=== PATIENT | male | born 1965 | race Two or more races ===

== ENCOUNTER 2016-03-29 17:01 | Inpatient (IN) | payer OTHER ==
[2016-03-29 19:36] VITALS: BMI 30.6
--- NOTE | 2016-03-29 21:25 | HP ---
CIWA Score - CIWA Score Nausea/Vomitin Muscle Tremors: 3 Anxiety: 3 Agitation: 3 Paroxysmal Sweats: 2 Orientation: 1-Uncertain about Date Tacttile Disturbances: 2-Mild Itch/Numbness/Burn (TIPS OF FINGERS) Auditory Disturbances: 2-Mild Harshness/Frighten Visual Disturbances: 0-None Headache: 0-None Present CIWA-Ar Total Score: 18 Admission ROS BHS - HPI Chief Complaint: WITHDRAWAL SYMPTOMS Allergies/Adverse Reactions: Allergies Allergy/AdvReac Type Severity Reaction Status Date / Time Fish Containing Products Allergy Verified 03/29/16 21:19 Penicillins AdvReac Verified 03/29/16 21:19 History of Present Illness: 50 Y.O. MAN WITH AN EXTENSIVE HISTORY OF ALCOHOL DEPENDENCE IS SEEKING DETOX. HE STATES HE DOES NOT HAVE A SIGNIFICANT PERIOD OF SOBRIETY. HE REPORTS COMPLETING DETOX PREVIOUSLY AT [facility] 1-2 YEARS AGO. Exam Limitations: No Limitations - Ebola screening Have you traveled outside of the country in the last 21 days: No Have you had contact with anyone from an Ebola affected area: No Have you been sick,other than usual withdrawal symptoms: No Do you have a fever: No - Review of Systems Constitutional: Chills, Loss of Appetite, Night Sweats, Changes in sleep, Unintentional Wgt. Loss EENT: reports: Tearing Respiratory: reports: No Symptoms reported Cardiac: reports: No Symptoms Reported GI: reports: Constipated, Poor Appetite : reports: Frequency Musculoskeletal: reports: No Symptoms Reported Integumentary: reports: Dryness Neuro: reports: Numbness, Tremors Endocrine: reports: No Symptoms Reported Hematology: reports: No Symptoms Reported Psychiatric: reports: Judgement Intact, Mood/Affect Appropiate, Orientated x3 Other Systems: Reviewed and Negative Patient History - Patient Medical History Hx Anemia: No Hx Asthma: No Hx Chronic Obstructive Pulmonary Disease (COPD): No Hx Cancer: No Hx Cardiac Disorders: Yes ([place] IN 2011-2 STENTS PLACED) Hx Congestive Heart Failure: No Hx Hypertension: Yes Hx Hypercholesterolemia: Yes Hx Pacemaker: No HX Cerebrovascular Accident: No Hx Seizures: No Hx Dementia: No Hx Diabetes: No Hx Gastrointestinal Disorders: No Hx Liver Disease: No Hx Sexually Transmitted Disorders: Yes (SYPHILIS-TREATED IN 1983) Hx Renal Disease (ESRD): No Hx Thyroid Disease: No Hx Human Immunodeficiency Virus (HIV): No Hx Hepatitis C: No Hx Depression: No Hx Suicide Attempt: No Hx Bipolar Disorder: No Hx Schizophrenia: No - Patient Surgical History Past Surgical History: Yes Hx Cataract Extraction: No Hx Cardiac Surgery: Yes (STENT PLACEMENT-2010) Hx Lung Surgery: No Hx Breast Surgery: No Hx Breast Biopsy: No Hx Abdominal Surgery: No Hx Appendectomy: No Hx Cholecystectomy: No Hx Genitourinary Surgery: No Hx Orthopedic Surgery: No Other Surgical History: TOOTH EXTRACTION-1996 Anesthesia Reaction: No - PPD History Previous Implant?: Yes ([facility] ) Documented Results: Negative w/proof Implanted On Prior [facility] Admission?: No Date: 11/02/15 Results: 0 PPD to be Administered?: No - Reproductive History Patient is a Female of Child Bearing Age (11 -55 yrs old): No - Smoking Cessation Smoking history: Current every day smoker Have you smoked in the past 12 months: Yes Aproximately how many cigarettes per day: 20 Hx Chewing Tobacco Use: No Initiated information on smoking cessation: Yes 'Breaking Loose' booklet given: 03/29/16 - Substance & Tx. History Hx Alcohol Use: Yes Hx Substance Use: Yes Substance Use Type: Alcohol, Cocaine Hx Substance Use Treatment: Yes (DETOX ) - Substances Abused Alcohol Route: Oral Frequency: Daily Amount used: 2 40OZ OF BEER Age of first use: 8 Date of Last Use: 03/28/16 Cocaine Route: Inhalation Frequency: 1-2 times per week Amount used: $20 Age of first use: 10 Date of Last Use: 03/26/16 Family Disease History - Family Disease History Family Disease History: Diabetes: Mother, Heart Disease: Mother, CA: Father ( Cirrhosis of the liver), Respiratory: Mother, Other: Father Admission Physical Exam S - Vital Signs Vital Signs: Vital Signs - 24 hr 03/29/16 19:35 Temperature 97.9 F Pulse Rate 91 H Respiratory 20 Rate Blood Pressure 128/71 - Physical General Appearance: Yes: Disheveled, Tremorous, Anxious HEENTM: Yes: Hearing grossly Normal, Normal ENT Inspection, Normocephalic, Normal Voice, JILL Respiratory: Yes: Chest Non-Tender, Lungs Clear, Normal Breath Sounds, No Respiratory Distress, No Accessory Muscle Use Neck: Yes: No masses,lesions,Nodules Breast: Yes: Breast Exam Deferred Cardiology: Yes: Regular Rhythm, Regular Rate, S1, S2 Abdominal: Yes: Non Tender, Flat, Soft Genitourinary: Yes: Frequency Back: Yes: Within Normal Limits Musculoskeletal: Yes: Within Normal Limits Extremities: Yes: Tremors Neurological: Yes: Alert, Normal Mood/Affect, Normal Response Integumentary: Yes: Normal Color, Dry, Warm Lymphatic: Yes: Within Normal Limits - Diagnostic (1) Alcohol dependence with uncomplicated withdrawal Current Visit: Yes Status: Chronic (2) Eczema Current Visit: Yes Status: Chronic (3) Hypertension Current Visit: Yes Status: Chronic (4) Stented coronary artery Current Visit: Yes Status: Chronic (5) History of [place] (myocardial infarction) Current Visit: Yes Status: Inactive (6) History of syphilis Current Visit: Yes Status: Inactive Cleared for Admission [facility] - Detox or Rehab [facility] Level of Care: Medically Managed Detox Regimen/Protocol: Librium S Breath Alcohol Content Breath Alcohol Content: 0 Urine Drug Screen - Results Drug Screen Negative: No Urine Drug Screen Results: KEATON-Cocaine
[2016-03-29] MEDS ORDERED: MAGNESIUM HYDROX 2400MG/30ML ORAL SUSPENSION 30 ML CUP PO PRN (21:46)
[2016-03-29] MEDS ORDERED: ACETAMINOPHEN 325 MG TABLET (FP) PO PRN (21:46)
[2016-03-29] MEDS ORDERED: MAG HYDROX/AL HYDROX/SIMETH 30 ML UNIT-DOSE CUP PO PRN (21:46)
[2016-03-29] MEDS ORDERED: diphenhydrAMINE HCL 50 MG CAPSULE PO PRN (21:46)
[2016-03-29] MEDS ORDERED: guaiFENesin/D-METHORPHAN HB 10 ML UNIT-DOSE CUPS PO PRN (21:46)
[2016-03-29] MEDS ORDERED: chlordiazePOXIDE HCL 25 MG CAPSULE PO ONE (21:46)
[2016-03-29] MEDS ORDERED: chlordiazePOXIDE HCL 25 MG CAPSULE PO PRN (21:46)
[2016-03-29] MEDS ORDERED: MAGNESIUM CITRATE 300 ML BOTTLE PO PRN (21:46)
[2016-03-29] MEDS ORDERED: NICOTINE POLACRILEX 2 MG GUM BC PRN (21:46)
[2016-03-29] MEDS ORDERED: LOPERAMIDE HCL 2 MG CAPSULE PO PRN (21:46)
[2016-03-29] MEDS ORDERED: MENTHOL/PHENOL 1 EACH UD MM PRN (21:46)
[2016-03-29] MEDS ORDERED: hydrOXYzine PAMOATE 50 MG CAPSULE (FP) PO PRN (21:46)
[2016-03-29] MEDS ORDERED: P-EPHED 60MG/TRIPROLIDI 2.5MG TABLET PO PRN (21:46)
[2016-03-29] MEDS ORDERED: IBUPROFEN 400 MG TABLET (FP) PO PRN (21:46)
[2016-03-29] MEDS ORDERED: HYDROCORTISONE 1% TOPICAL OINT 30 GM TUBE TP PRN (21:50)
[2016-03-29] MEDS ORDERED: chlordiazePOXIDE HCL 25 MG CAPSULE PO SCH (23:00)
[2016-03-30] MEDS ORDERED: chlordiazePOXIDE HCL 25 MG CAPSULE PO PRN (01:27)
[2016-03-30] MEDS ORDERED: chlordiazePOXIDE HCL 25 MG CAPSULE PO ONE (01:27)
[2016-03-30 02:39] LABS: URINE APPEARANCE CLEAR; URINE BILIRUBIN NEGATIVE (NEGATIVE); URINE BLOOD NEGATIVE (NEGATIVE); URINE COLOR LTYELLOW; URINE GLUCOSE (UA) NEGATIVE (NEGATIVE); URINE KETONE NEGATIVE (NEGATIVE); URINE NITRITE NEGATIVE (NEGATIVE); URINE PROTEIN NEGATIVE (NEGATIVE); URINE UROBILINOGEN NEGATIVE E.U./dl (0.2-1.0)
[2016-03-30 02:47] LABS: URINE LEUK ESTERASE TRACE (NEGATIVE)
[2016-03-30 02:49] LABS: CALCIUM OXALATE CRYSTALS FEW /hpf (NONE SEEN); URINE HYALINE CAST 1 /lpf; URINE MUCUS RARE; URINE RBC 1 /hpf (0-3); URINE WBC 6 /hpf (3-5)
[2016-03-30] MEDS: THIAMINE HCL 100 MG TABLET (FP) PO SCH ×2 (03:11→21:23)
[2016-03-30] MEDS: TOLNAFTATE 1% CREAM 15 GM TUBE TP SCH ×3 (03:11→21:25)
[2016-03-30] MEDS: chlordiazePOXIDE HCL 25 MG CAPSULE PO SCH ×4 (05:48→22:15)
--- NOTE | 2016-03-30 09:47 | PN ---
S CIWA - CIWA Score Nausea/Vomitin-No Nausea/No Vomiting Muscle Tremors: 4-Moderate,w/Arms Extend Anxiety: 4-Mod. Anxious/Guarded Agitation: 4-Moderately Restless Paroxysmal Sweats: 1-Minimal Palms Moist Orientation: 0-Oriented Tacttile Disturbances: 3-Moderate Itch/Numb/Burn Auditory Disturbances: 0-None Visual Disturbances: 0-None Headache: 0-None Present CIWA-Ar Total Score: 16 BHS Progress Note (SOAP) Subjective: ANXIETY,SWEATS,IRRITABILITY. Objective: 03/30/16 09:50 Vital Signs Temperature 98.7 F 03/30/16 06:25 Pulse Rate 76 03/30/16 06:25 Respiratory Rate 16 03/30/16 06:25 Blood Pressure 114/71 03/30/16 06:25 O2 Sat by Pulse Oximetry (%) Laboratory Last Values Urine Color Ltyellow 03/30/16 00:05 Urine Appearance Clear 03/30/16 00:05 Urine pH 5.0 (5.0-8.0) 03/30/16 00:05 Ur Specific [place] 1.025 (1.001-1.035) 03/30/16 00:05 Urine Protein Negative (NEGATIVE) 03/30/16 00:05 Urine Glucose (UA) Negative (NEGATIVE) 03/30/16 00:05 Urine Ketones Negative (NEGATIVE) 03/30/16 00:05 Urine Blood Negative (NEGATIVE) 03/30/16 00:05 Urine Nitrite Negative (NEGATIVE) 03/30/16 00:05 Urine Bilirubin Negative (NEGATIVE) 03/30/16 00:05 Urine Urobilinogen Negative E.U./dl (0.2-1.0) 03/30/16 00:05 Ur Leukocyte Esterase Trace (NEGATIVE) H 03/30/16 00:05 Urine RBC 1 /hpf (0-3) 03/30/16 00:05 Urine WBC 6 /hpf (3-5) 03/30/16 00:05 Calcium Oxalate Crystal Few /hpf (NONE SEEN) 03/30/16 00:05 Hyaline Casts 1 /lpf 03/30/16 00:05 Urine Mucus Rare 03/30/16 00:05 Assessment: 03/30/16 09:50 WITHDRAWAL SX Plan: CONTINUE DETOX
[2016-03-30] MEDS: NICOTINE 21 MG/24 HOURS TOPICAL PATCH TD SCH (10:12)
[2016-03-30] MEDS: LISINOPRIL 5 MG TABLET (FP) PO SCH (10:12)
[2016-03-30] MEDS: PRENATAL VITAMINS W/ FOLIC ACID TABLET (FP) PO SCH (10:12)
[2016-03-30] MEDS: ASPIRIN 81 MG CHEWABLE TABLETS PO SCH (10:12)
[2016-03-30 10:27] LABS: MCH 30.5 pg (25.7-33.7); MCHC 33.2 g/dl (32.0-35.9); MEAN CELL VOLUME 91.8 fl (80-96); MEAN PLT VOLUME 8.8 fl (7.5-11.1); PLATELET COUNT 192 K/MM3 (134-434); RDW 13.8 % (11.9-15.9); WHITE BLOOD COUNT 9.2 K/mm3 (4.0-10.0)
[2016-03-30] MEDS: METOPROLOL SUCCINATE 50 MG TAB.SR.24H (FP) PO SCH (10:37)
[2016-03-30] MEDS: EZETIMIBE 10 MG TABLET (FP) PO SCH (10:38)
[2016-03-30 11:05] LABS: ALK PHOS 75 U/L (45-117); ANION GAP 1 (8-16); BILIRUBIN,TOTAL 0.2 mg/dL (0.2-1.0); CALCIUM 8.8 mg/dL (8.5-10.1); CO2 31 mmol/L (21-32); CREATININE 1.2 mg/dL (0.7-1.3); GLUCOSE,RANDOM 87 mg/dL (74-106); SGOT/AST 15 U/L (15-37); SGPT/ALT 31 U/L (12-78); TOT PROT 5.7 g/dl (6.4-8.2)
--- NOTE | 2016-03-30 11:50 | EKG ---
Test Reason : Blood Pressure : / mmHG Vent. Rate : 075 BPM Atrial Rate : 075 BPM P-R Int : 150 ms QRS Dur : 090 ms QT Int : 404 ms P-R-T Axes : 080 -08 -14 degrees QTc Int : 451 ms NORMAL SINUS RHYTHM INFERIOR-POSTERIOR INFARCT , AGE UNDETERMINED ABNORMAL ECG NO PREVIOUS ECGS AVAILABLE Confirmed by ZOHAIB MANN MD ([id number]) on 03/30/2016 11:50:07 AM Referred By: Confirmed By:ZOHAIB MANN MD
[2016-03-30] MEDS: PRASUGREL HCL 5 MG TAB PO SCH ×2 (15:40→21:24)
[2016-03-30] MEDS: ATORVASTATIN CA 40 MG TABLET (FP) PO SCH (21:23)
[2016-03-30] MEDS ORDERED: chlordiazePOXIDE HCL 25 MG CAPSULE PO SCH (23:00)
[2016-03-31] MEDS: chlordiazePOXIDE HCL 25 MG CAPSULE PO SCH ×4 (05:55→22:39)
[2016-03-31] MEDS: METOPROLOL SUCCINATE 50 MG TAB.SR.24H (FP) PO SCH (10:09)
[2016-03-31] MEDS: PRASUGREL HCL 5 MG TAB PO SCH ×2 (10:09→22:38)
[2016-03-31] MEDS: TOLNAFTATE 1% CREAM 15 GM TUBE TP SCH ×2 (10:09→22:37)
[2016-03-31] MEDS: PRENATAL VITAMINS W/ FOLIC ACID TABLET (FP) PO SCH (10:09)
[2016-03-31] MEDS: HYDROCORTISONE 1% TOPICAL OINT 30 GM TUBE TP SCH ×2 (10:09→22:38)
[2016-03-31] MEDS: ASPIRIN 81 MG CHEWABLE TABLETS PO SCH (10:10)
[2016-03-31] MEDS: LISINOPRIL 5 MG TABLET (FP) PO SCH (10:10)
--- NOTE | 2016-03-31 10:11 | PN ---
[facility] CIWA - CIWA Score Nausea/Vomitin-No Nausea/No Vomiting Muscle Tremors: 4-Moderate,w/Arms Extend Anxiety: 4-Mod. Anxious/Guarded Agitation: 4-Moderately Restless Paroxysmal Sweats: 1-Minimal Palms Moist Orientation: 0-Oriented Tacttile Disturbances: 3-Moderate Itch/Numb/Burn Auditory Disturbances: 0-None Visual Disturbances: 0-None Headache: 0-None Present CIWA-Ar Total Score: 16 S Progress Note (SOAP) Subjective: ANXIETY,SWEATS, IRRITABILITY,AGITATIONS. Objective: 03/31/16 10:10 Vital Signs Temperature 98.5 F 03/31/16 06:21 Pulse Rate 72 03/31/16 06:21 Respiratory Rate 16 03/31/16 06:21 Blood Pressure 104/66 03/31/16 06:21 O2 Sat by Pulse Oximetry (%) Laboratory Last Values WBC 9.2 K/mm3 (4.0-10.0) 03/30/16 07:00 RBC 4.54 M/mm3 (4.00-5.60) 03/30/16 07:00 Hgb 13.8 GM/dL (11.7-16.9) 03/30/16 07:00 Hct 41.7 % (35.4-49) 03/30/16 07:00 MCV 91.8 fl (80-96) 03/30/16 07:00 MCHC 33.2 g/dl (32.0-35.9) 03/30/16 07:00 RDW 13.8 % (11.9-15.9) 03/30/16 07:00 Plt Count 192 K/MM3 (134-434) 03/30/16 07:00 MPV 8.8 fl (7.5-11.1) 03/30/16 07:00 Sodium 141 mmol/L (136-145) 03/30/16 07:00 Potassium 4.0 mmol/L (3.5-5.1) 03/30/16 07:00 Chloride 109 mmol/L (98-107) H 03/30/16 07:00 Carbon Dioxide 31 mmol/L (21-32) 03/30/16 07:00 Anion Gap 1 (8-16) L 03/30/16 07:00 BUN 18 mg/dL (7-18) 03/30/16 07:00 Creatinine 1.2 mg/dL (0.7-1.3) 03/30/16 07:00 Creat Clearance w eGFR > 60 (>60) 03/30/16 07:00 Random Glucose 87 mg/dL (74-106) 03/30/16 07:00 Calcium 8.8 mg/dL (8.5-10.1) 03/30/16 07:00 Total Bilirubin 0.2 mg/dL (0.2-1.0) 03/30/16 07:00 AST 15 U/L (15-37) 03/30/16 07:00 ALT 31 U/L (12-78) 03/30/16 07:00 Alkaline Phosphatase 75 U/L (45-117) 03/30/16 07:00 Total Protein 5.7 g/dl (6.4-8.2) L 03/30/16 07:00 Albumin 3.0 g/dl (3.4-5.0) L 03/30/16 07:00 Urine Color Ltyellow 03/30/16 00:05 Urine Appearance Clear 03/30/16 00:05 Urine pH 5.0 (5.0-8.0) 03/30/16 00:05 Ur Specific [place] 1.025 (1.001-1.035) 03/30/16 00:05 Urine Protein Negative (NEGATIVE) 03/30/16 00:05 Urine Glucose (UA) Negative (NEGATIVE) 03/30/16 00:05 Urine Ketones Negative (NEGATIVE) 03/30/16 00:05 Urine Blood Negative (NEGATIVE) 03/30/16 00:05 Urine Nitrite Negative (NEGATIVE) 03/30/16 00:05 Urine Bilirubin Negative (NEGATIVE) 03/30/16 00:05 Urine Urobilinogen Negative E.U./dl (0.2-1.0) 03/30/16 00:05 Ur Leukocyte Esterase Trace (NEGATIVE) H 03/30/16 00:05 Urine RBC 1 /hpf (0-3) 03/30/16 00:05 Urine WBC 6 /hpf (3-5) 03/30/16 00:05 Calcium Oxalate Crystal Few /hpf (NONE SEEN) 03/30/16 00:05 Hyaline Casts 1 /lpf 03/30/16 00:05 Urine Mucus Rare 03/30/16 00:05 RPR Titer Nonreactive (NONREACTIVE) 03/30/16 07:00 Assessment: 03/31/16 10:10 WITHDRAWAL SX Plan: CONTINUE DETOX REPEAT [facility]
[2016-03-31] MEDS: NICOTINE 21 MG/24 HOURS TOPICAL PATCH TD SCH (10:13)
[2016-03-31] MEDS: EZETIMIBE 10 MG TABLET (FP) PO SCH (10:13)
[2016-03-31] MEDS: THIAMINE HCL 100 MG TABLET (FP) PO SCH (22:37)
[2016-03-31] MEDS: ATORVASTATIN CA 40 MG TABLET (FP) PO SCH (22:39)
[2016-03-31] MEDS ORDERED: chlordiazePOXIDE 5 MG CAPSULE PO SCH (23:00)
[2016-04-01] MEDS: chlordiazePOXIDE 5 MG CAPSULE PO SCH ×3 (05:50→17:10)
[2016-04-01] MEDS: ASPIRIN 81 MG CHEWABLE TABLETS PO SCH (10:05)
[2016-04-01] MEDS: EZETIMIBE 10 MG TABLET (FP) PO SCH (10:05)
[2016-04-01] MEDS: LISINOPRIL 5 MG TABLET (FP) PO SCH (10:05)
[2016-04-01] MEDS: HYDROCORTISONE 1% TOPICAL OINT 30 GM TUBE TP SCH (10:06)
[2016-04-01] MEDS: METOPROLOL SUCCINATE 50 MG TAB.SR.24H (FP) PO SCH (10:06)
[2016-04-01] MEDS: PRENATAL VITAMINS W/ FOLIC ACID TABLET (FP) PO SCH (10:06)
[2016-04-01] MEDS: TOLNAFTATE 1% CREAM 15 GM TUBE TP SCH (10:06)
[2016-04-01] MEDS: NICOTINE 21 MG/24 HOURS TOPICAL PATCH TD SCH (10:06)
--- NOTE | 2016-04-01 10:32 | PN ---
BHS Progress Note (SOAP) Subjective: ANXIETY, TREMORS, SWEATS,FATIGUE. Objective: 04/01/16 10:31 Vital Signs Temperature 97.6 F 04/01/16 09:42 Pulse Rate 78 04/01/16 09:42 Respiratory Rate 18 04/01/16 09:42 Blood Pressure 116/69 04/01/16 09:42 O2 Sat by Pulse Oximetry (%) Assessment: 04/01/16 10:32 WITHDRAWAL SX Plan: CONTINUE DETOX
[2016-04-01] MEDS: PRASUGREL HCL 5 MG TAB PO SCH (12:55)
[2016-04-01 22:11] VITALS: BP 96/58; PULSE 78; TEMP 99
[2016-04-01 22:37] LABS: URINE APPEARANCE CLEAR; URINE BILIRUBIN NEGATIVE (NEGATIVE); URINE BLOOD NEGATIVE (NEGATIVE); URINE COLOR YELLOW; URINE GLUCOSE (UA) NEGATIVE (NEGATIVE); URINE KETONE NEGATIVE (NEGATIVE); URINE LEUK ESTERASE NEGATIVE (NEGATIVE); URINE NITRITE NEGATIVE (NEGATIVE); URINE PROTEIN NEGATIVE (NEGATIVE); URINE UROBILINOGEN NEGATIVE E.U./dl (0.2-1.0)
[2016-04-01] MEDS ORDERED: chlordiazePOXIDE HCL 10 MG CAPSULE PO SCH (23:00)
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
[2016-04-02] MEDS ORDERED: chlordiazePOXIDE HCL 10 MG CAPSULE PO SCH (05:00)
== END 2016-04-01 22:22 | disposition home or self-care (01) | DRG 775 ==
LOC: YASAS 17:01 → Y3N 22:40
PROVIDERS: ADMIT Internal Medicine; ATTEND Internal Medicine
PROC: HZ2ZZZZ Detoxification Services for Substance Abuse Treatment (ICD-10-PCS; principal; 2016-03-31)
DX: F10.230 Alcohol dependence with withdrawal, uncomplicated (principal); F17.210 Nicotine dependence, cigarettes, uncomplicated; E78.00 Pure hypercholesterolemia, unspecified; I10 Essential (primary) hypertension; I25.2 Old myocardial infarction; L30.9 Dermatitis, unspecified; Z95.5 Presence of coronary angioplasty implant and graft; Z87.438 Personal history of other diseases of male genital organs
CPT/HCPCS: 36415; 80053; 81003; 81015; 85027; 86593; 93005; 93010

== ENCOUNTER 2017-10-31 14:48 | Inpatient (IN) | payer OTHER ==
[2017-10-31 16:18] VITALS: BMI 35.2
--- NOTE | 2017-10-31 19:23 | HP ---
CIWA Score - CIWA Score Nausea/Vomitin-Mild Nausea/No Vomiting Muscle Tremors: 2 Anxiety: 2 Agitation: 2 Paroxysmal Sweats: 1-Minimal Palms Moist Orientation: 0-Oriented Tacttile Disturbances: 1-Very Mild Itch/Numbness Auditory Disturbances: 1-Very Mild Visual Disturbances: 1-Very Mild Sensitivity Headache: 2-Mild CIWA-Ar Total Score: 13 Admission ROS BHS - HPI Chief Complaint: WITHDRAWAL SYMPTOMS Allergies/Adverse Reactions: Allergies Allergy/AdvReac Type Severity Reaction Status Date / Time Fish Containing Products Allergy Verified 10/31/17 18:19 Penicillins AdvReac Verified 10/31/17 18:19 History of Present Illness: 51 Y.O. MAN WITH AN EXTENSIVE HISTORY OF ALCOHOL DEPENDENCE IS HERE SEEKING DETOX. LAST ADMISSION TO DETOX WAS 6 MONTHS AGO AT [facility]. LONGEST PERIOD SOBER HAS BEEN 12 YEARS. Exam Limitations: No Limitations - Ebola screening Have you traveled outside of the country in the last 21 days: Yes Have you been sick,other than usual withdrawal symptoms: No - Review of Systems Constitutional: Diaphoresis EENT: reports: Blurred Vision Respiratory: reports: No Symptoms reported Cardiac: reports: No Symptoms Reported GI: reports: No Symptoms Reported : reports: No Symptoms Reported Musculoskeletal: reports: No Symptoms Reported Integumentary: reports: Dryness Neuro: reports: No Symptoms reported Endocrine: reports: No Symptoms Reported Hematology: reports: No Symptoms Reported Psychiatric: reports: Orientated x3 Other Systems: Reviewed and Negative Patient History - Patient Medical History Hx Anemia: No Hx Asthma: No Hx Chronic Obstructive Pulmonary Disease (COPD): No Hx Cancer: No Hx Cardiac Disorders: Yes ([place] IN 2010-2 STENTS PLACED) Hx Congestive Heart Failure: No Hx Hypertension: Yes Hx Hypercholesterolemia: Yes Hx Pacemaker: No HX Cerebrovascular Accident: No Hx Seizures: No Hx Dementia: No Hx Diabetes: No Hx Gastrointestinal Disorders: No Hx Liver Disease: No Hx Genitourinary Disorders: No Hx Sexually Transmitted Disorders: Yes (SYPHILIS-TREATED IN 1983) Hx Renal Disease (ESRD): No Hx Thyroid Disease: No Hx Human Immunodeficiency Virus (HIV): No Hx Hepatitis C: No Hx Depression: No Hx Suicide Attempt: No Hx Bipolar Disorder: No Hx Schizophrenia: No - Patient Surgical History Past Surgical History: Yes Hx Cataract Extraction: No Hx Cardiac Surgery: Yes (STENT PLACEMENT-2010) Hx Lung Surgery: No Hx Breast Surgery: No Hx Breast Biopsy: No Hx Abdominal Surgery: No Hx Appendectomy: No Hx Cholecystectomy: No Hx Genitourinary Surgery: No Hx Orthopedic Surgery: No Other Surgical History: TOOTH EXTRACTION-1996 Anesthesia Reaction: No - PPD History Previous Implant?: Yes Documented Results: Negative w/proof Implanted On Prior [facility] Admission?: Yes Date: 11/02/15 Results: 0 PPD to be Administered?: No - Reproductive History Patient is a Female of Child Bearing Age (11 -55 yrs old): No - Smoking Cessation Smoking history: Current every day smoker Have you smoked in the past 12 months: Yes Aproximately how many cigarettes per day: 40 Hx Chewing Tobacco Use: No Initiated information on smoking cessation: Yes 'Breaking Loose' booklet given: 10/31/17 - Substance & Tx. History Hx Alcohol Use: Yes Hx Substance Use: Yes Substance Use Type: Alcohol, Cocaine Hx Substance Use Treatment: Yes (DETOX/REHAB: 6 MONTHS AGO ) - Substances Abused Alcohol Route: Oral Frequency: Daily Amount used: 07/02OZ BEER Age of first use: 8 Date of Last Use: 10/31/17 Crack Route: Smoking Frequency: Daily Amount used: $40 Age of first use: 18 Date of Last Use: 10/31/17 Family Disease History - Family Disease History Family Disease History: Diabetes: Mother, Heart Disease: Mother, CA: Father ( Cirrhosis of the liver), Respiratory: Mother, Other: Father Admission Physical Exam BHS - Vital Signs Vital Signs: Vital Signs - 24 hr 10/31/17 16:15 Temperature 97.0 F L Pulse Rate 83 Respiratory 18 Rate Blood Pressure 134/82 - Physical General Appearance: Yes: Obese, Sweating, Anxious HEENTM: Yes: Hearing grossly Normal, Normal ENT Inspection, Normocephalic Respiratory: Yes: Chest Non-Tender, Lungs Clear, Normal Breath Sounds, No Respiratory Distress, No Accessory Muscle Use Neck: Yes: Within Normal Limits Breast: Yes: Breast Exam Deferred Cardiology: Yes: Regular Rhythm, Regular Rate Abdominal: Yes: Normal Bowel Sounds, Non Tender, Flat Genitourinary: Yes: Other (NO COMPLAINTS REPORTED) Back: Yes: Normal Inspection Musculoskeletal: Yes: full range of Motion, Gait Steady Extremities: Yes: Normal Capillary Refill, Normal Inspection, Tremors 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 intact, Fully Oriented, Alert, Normal Mood/ Affect, Normal Response Integumentary: Yes: Normal Color, Dry, Warm Lymphatic: Yes: Within Normal Limits - Diagnostic (1) Nicotine dependence Current Visit: Yes Status: Chronic (2) Alcohol dependence with uncomplicated withdrawal Current Visit: Yes Status: Chronic (3) Eczema Current Visit: Yes Status: Chronic (4) Hypertension Current Visit: Yes Status: Chronic (5) Stented coronary artery Current Visit: No Status: Chronic (6) Hyperlipidemia Current Visit: Yes Status: Chronic (7) History of syphilis Current Visit: Yes Status: Resolved (8) Cocaine dependence Current Visit: Yes Status: Chronic Cleared for Admission [facility] - Detox or Rehab [facility] Level of Care: Medically Managed Detox Regimen/Protocol: Librium [facility] Breath Alcohol Content Breath Alcohol Content: 0 Urine Drug Screen - Results Drug Screen Negative: No Urine Drug Screen Results: KEATON-Cocaine
[2017-10-31] MEDS ORDERED: chlordiazePOXIDE HCL 25 MG CAPSULE PO PRN (19:26)
[2017-10-31] MEDS ORDERED: LOPERAMIDE HCL 2 MG CAPSULE PO PRN (19:26)
[2017-10-31] MEDS ORDERED: MAGNESIUM CITRATE 300 ML BOTTLE PO PRN (19:26)
[2017-10-31] MEDS ORDERED: MAGNESIUM HYDROX 2400MG/30ML ORAL SUSPENSION 30 ML CUP PO PRN (19:26)
[2017-10-31] MEDS ORDERED: hydrOXYzine PAMOATE 50 MG CAPSULE (FP) PO PRN (19:26)
[2017-10-31] MEDS ORDERED: ACETAMINOPHEN 325 MG TABLET (FP) PO PRN (19:26)
[2017-10-31] MEDS ORDERED: P-EPHED 60MG/TRIPROLIDI 2.5MG TABLET PO PRN (19:26)
[2017-10-31] MEDS ORDERED: guaiFENesin/D-METHORPHAN HB 10 ML UNIT-DOSE CUPS PO PRN (19:26)
[2017-10-31] MEDS ORDERED: MENTHOL/PHENOL 1 EACH UD MM PRN (19:26)
[2017-10-31] MEDS ORDERED: MAG HYDROX/AL HYDROX/SIMETH 30 ML UNIT-DOSE CUP PO PRN (19:26)
[2017-10-31] MEDS ORDERED: NICOTINE POLACRILEX 4 MG GUM BC PRN (19:26)
[2017-10-31] MEDS ORDERED: diphenhydrAMINE HCL 25 MG CAPSULE (FP) PO PRN (19:31)
[2017-10-31] MEDS ORDERED: chlordiazePOXIDE HCL 25 MG CAPSULE PO ONE (19:45)
[2017-10-31] MEDS ORDERED: MELATONIN 5 MG TABLETS PO PRN (22:00)
[2017-10-31] MEDS: THIAMINE HCL 100 MG TABLET (FP) PO SCH (23:25)
[2017-10-31] MEDS: ATORVASTATIN CA 80 MG TABLET (FP) PO SCH (23:25)
[2017-10-31] MEDS: chlordiazePOXIDE HCL 25 MG CAPSULE PO SCH (23:38)
[2017-11-01 00:09] LABS: URINE APPEARANCE CLEAR; URINE BILIRUBIN NEGATIVE (<2.0 mg/dL); URINE COLOR LTYELLOW; URINE GLUCOSE (UA) NEGATIVE (NEGATIVE); URINE KETONE NEGATIVE (NEGATIVE); URINE LEUK ESTERASE NEGATIVE (NEGATIVE); URINE NITRITE NEGATIVE (NEGATIVE); URINE PROTEIN NEGATIVE (NEGATIVE)
[2017-11-01] MEDS: chlordiazePOXIDE HCL 25 MG CAPSULE PO SCH ×4 (05:56→22:26)
[2017-11-01] MEDS: EZETIMIBE 10 MG TABLET (FP) PO SCH (10:54)
[2017-11-01] MEDS: PRENATAL VITAMINS W/ FOLIC ACID TABLET (FP) PO SCH (10:55)
[2017-11-01] MEDS: LISINOPRIL 5 MG TABLET (FP) PO SCH (10:55)
[2017-11-01] MEDS: NICOTINE 21 MG/24 HOURS TOPICAL PATCH TD SCH (10:55)
[2017-11-01] MEDS: ASPIRIN COATED 81 MG TABLET.EC PO SCH (10:55)
[2017-11-01 11:06] LABS: HEMATOCRIT 44.7 % (35.4-49); HEMOGLOBIN 14.7 GM/dL (11.7-16.9); MCH 29.8 pg (25.7-33.7); MCHC 32.8 g/dl (32.0-35.9); MEAN CELL VOLUME 90.8 fl (80-96); MEAN PLT VOLUME 9.6 fl (7.5-11.1); PLATELET COUNT 178 K/MM3 (134-434); RBC 4.93 M/mm3 (4.00-5.60); RDW 13.7 % (11.9-15.9)
[2017-11-01 11:31] LABS: CHLORIDE 109 mmol/L (98-107); POTASSIUM 4.2 mmol/L (3.5-5.1); SODIUM 145 mmol/L (136-145)
[2017-11-01 11:58] LABS: ALBUMIN 3.2 g/dl (3.4-5.0); ALK PHOS 116 U/L (45-117); ANION GAP 9 MMOL/L (8-16); BILIRUBIN,TOTAL 0.2 mg/dL (0.2-1.0); BLOOD UREA NITROGEN 13 mg/dL (7-18); CALCIUM 8.5 mg/dL (8.5-10.1); CO2 27 mmol/L (21-32); CREATININE 1.1 mg/dL (0.7-1.3); GLUCOSE,RANDOM 65 mg/dL (74-106); SGOT/AST 19 U/L (15-37); SGPT/ALT 24 U/L (12-78); TOT PROT 6.1 g/dl (6.4-8.2)
--- NOTE | 2017-11-01 12:24 | PN ---
[facility] CIWA - CIWA Score Nausea/Vomitin-No Nausea/No Vomiting Muscle Tremors: 2 Anxiety: 4-Mod. Anxious/Guarded Agitation: 0-Normal Activity Paroxysmal Sweats: 3 Orientation: 0-Oriented Tacttile Disturbances: 1-Very Mild Itch/Numbness Auditory Disturbances: 2-Mild Harshness/Frighten Visual Disturbances: 2-Mild Sensitivity Headache: 0-None Present CIWA-Ar Total Score: 14 BHS Progress Note (SOAP) Subjective: Sweating, Anxious, Fatigue. Objective: PATIENT A & O X 3. NO ACUTE DISTRESS. 11/01/17 12:25 Vital Signs Temperature 96.7 F L 11/01/17 09:57 Pulse Rate 71 11/01/17 09:57 Respiratory Rate 18 11/01/17 09:57 Blood Pressure 118/67 11/01/17 09:57 O2 Sat by Pulse Oximetry (%) Laboratory Tests 10/31/17 11/01/17 11/01/17 22:00 07:16 07:16 WBC 7.0 RBC 4.93 Hgb 14.7 Hct 44.7 MCV 90.8 MCH 29.8 MCHC 32.8 RDW 13.7 Plt Count 178 MPV 9.6 Sodium 145 Potassium 4.2 Chloride 109 H Carbon Dioxide 27 Anion Gap 9 BUN 13 Creatinine 1.1 Creat Clearance w eGFR > 60 Random Glucose 65 L D Calcium 8.5 Total Bilirubin 0.2 AST 19 D ALT 24 D Alkaline Phosphatase 116 Total Protein 6.1 L Albumin 3.2 L Urine Color Ltyellow Urine Appearance Clear Urine pH 5.0 Ur Specific [place] 1.025 Urine Protein Negative Urine Glucose (UA) Negative Urine Ketones Negative Urine Blood Negative Urine Nitrite Negative Urine Bilirubin Negative Urine Urobilinogen 2.0 Ur Leukocyte Esterase Negative LABS NOTED. RPR, HIV AB, HCV RESULTS PENDING. 11/01/17 12:27 Assessment: 11/01/17 12:25 WITHDRAWAL SYMPTOMS. Plan: CONTINUE DETOX. INCREASE DAILY PO FLUID INTAKE.
[2017-11-01] MEDS: PRASUGREL HCL 10 MG TAB PO SCH (13:48)
[2017-11-01 14:36] LABS: RPR NONREACTIVE (NONREACTIVE)
--- NOTE | 2017-11-01 20:16 | EKG ---
Test Reason : Blood Pressure : / mmHG Vent. Rate : 077 BPM Atrial Rate : 077 BPM P-R Int : 154 ms QRS Dur : 094 ms QT Int : 426 ms P-R-T Axes : 071 -01 002 degrees QTc Int : 482 ms NORMAL SINUS RHYTHM POSSIBLE LATERAL INFARCT , AGE UNDETERMINED INFERIOR INFARCT (CITED ON OR BEFORE 30-MAR-2016) ABNORMAL ECG WHEN COMPARED WITH ECG OF 30-MAR-2016 03:18, BORDERLINE CRITERIA FOR LATERAL INFARCT ARE NOW PRESENT Confirmed by LITTLE MOBLEY MD ([id number]) on 11/01/2017 8:15:58 PM Referred By: Confirmed By:LITTLE MOBLEY MD
[2017-11-01] MEDS: THIAMINE HCL 100 MG TABLET (FP) PO SCH (22:26)
[2017-11-01] MEDS: ATORVASTATIN CA 80 MG TABLET (FP) PO SCH (22:26)
[2017-11-01] MEDS ORDERED: chlordiazePOXIDE HCL 25 MG CAPSULE PO SCH (23:00)
[2017-11-02] MEDS: chlordiazePOXIDE HCL 25 MG CAPSULE PO SCH ×3 (05:31→17:21)
[2017-11-02] MEDS: ASPIRIN COATED 81 MG TABLET.EC PO SCH (12:12)
[2017-11-02] MEDS: LISINOPRIL 5 MG TABLET (FP) PO SCH (12:12)
[2017-11-02] MEDS: PRENATAL VITAMINS W/ FOLIC ACID TABLET (FP) PO SCH (12:12)
[2017-11-02] MEDS: EZETIMIBE 10 MG TABLET (FP) PO SCH (12:12)
[2017-11-02] MEDS: NICOTINE 21 MG/24 HOURS TOPICAL PATCH TD SCH (12:13)
[2017-11-02] MEDS: PRASUGREL HCL 10 MG TAB PO SCH (12:13)
--- NOTE | 2017-11-02 13:48 | PN ---
[facility] CIWA - CIWA Score Nausea/Vomitin-No Nausea/No Vomiting Muscle Tremors: 2 Anxiety: 3 Agitation: 0-Normal Activity Paroxysmal Sweats: 3 Orientation: 0-Oriented Tacttile Disturbances: 2-Mild Itch/Numbness/Burn Auditory Disturbances: 1-Very Mild Visual Disturbances: 2-Mild Sensitivity Headache: 0-None Present CIWA-Ar Total Score: 13 BHS Progress Note (SOAP) Subjective: Sweating, Fatigue, Anxious. Objective: PATIENT A & O X 3, OBSERVED AMBULATING ON UNIT. NO ACUTE DISTRESS. 11/02/17 13:46 Vital Signs Temperature 96.8 F L 11/02/17 09:50 Pulse Rate 68 11/02/17 09:50 Respiratory Rate 20 11/02/17 09:50 Blood Pressure 125/80 11/02/17 09:50 O2 Sat by Pulse Oximetry (%) Laboratory Tests 10/31/17 11/01/17 11/01/17 22:00 07:16 07:16 WBC 7.0 RBC 4.93 Hgb 14.7 Hct 44.7 MCV 90.8 MCH 29.8 MCHC 32.8 RDW 13.7 Plt Count 178 MPV 9.6 Sodium 145 Potassium 4.2 Chloride 109 H Carbon Dioxide 27 Anion Gap 9 BUN 13 Creatinine 1.1 Creat Clearance w eGFR > 60 Random Glucose 65 L D Calcium 8.5 Total Bilirubin 0.2 AST 19 D ALT 24 D Alkaline Phosphatase 116 Total Protein 6.1 L Albumin 3.2 L Urine Color Ltyellow Urine Appearance Clear Urine pH 5.0 Ur Specific [place] 1.025 Urine Protein Negative Urine Glucose (UA) Negative Urine Ketones Negative Urine Blood Negative Urine Nitrite Negative Urine Bilirubin Negative Urine Urobilinogen 2.0 Ur Leukocyte Esterase Negative RPR Titer Hep C Ab Diagnostic Liver Fibrosis Interp HIV 1&2 Antibody Screen HIV P24 Antigen 11/01/17 11/01/17 07:16 07:16 WBC RBC Hgb Hct MCV MCH MCHC RDW Plt Count MPV Sodium Potassium Chloride Carbon Dioxide Anion Gap BUN Creatinine Creat Clearance w eGFR Random Glucose Calcium Total Bilirubin AST ALT Alkaline Phosphatase Total Protein Albumin Urine Color Urine Appearance Urine pH Ur Specific [place] Urine Protein Urine Glucose (UA) Urine Ketones Urine Blood Urine Nitrite Urine Bilirubin Urine Urobilinogen Ur Leukocyte Esterase RPR Titer Nonreactive Hep C Ab Diagnostic 0.1 Liver Fibrosis Interp HIV 1&2 Antibody Screen Negative HIV P24 Antigen Negative LABS NOTED. Assessment: 11/02/17 13:47 WITHDRAWAL SYMPTOMS. Plan: CONTINUE DETOX. INCREASE DAILY PO FLUID INTAKE. ENCOURAGE AMBULATION.
[2017-11-02] MEDS: chlordiazePOXIDE 5 MG CAPSULE PO SCH (22:29)
[2017-11-02] MEDS: THIAMINE HCL 100 MG TABLET (FP) PO SCH (22:29)
[2017-11-02] MEDS: ATORVASTATIN CA 80 MG TABLET (FP) PO SCH (22:29)
[2017-11-03] MEDS: chlordiazePOXIDE 5 MG CAPSULE PO SCH ×3 (05:49→17:21)
[2017-11-03] MEDS: PRASUGREL HCL 10 MG TAB PO SCH (10:37)
[2017-11-03] MEDS: EZETIMIBE 10 MG TABLET (FP) PO SCH (10:40)
[2017-11-03] MEDS: ASPIRIN COATED 81 MG TABLET.EC PO SCH (10:40)
[2017-11-03] MEDS: LISINOPRIL 5 MG TABLET (FP) PO SCH (10:40)
[2017-11-03] MEDS: NICOTINE 21 MG/24 HOURS TOPICAL PATCH TD SCH (10:41)
[2017-11-03] MEDS: PRENATAL VITAMINS W/ FOLIC ACID TABLET (FP) PO SCH (10:42)
[2017-11-03] MEDS: HYDROCORTISONE 1% TOPICAL OINT 30 GM TUBE TP PRN ×2 (10:43→22:22)
--- NOTE | 2017-11-03 12:21 | PN ---
[facility] Progress Note (SOAP) Subjective: Tremors, Fatigue. Objective: PATIENT A & O X 2 (UNCERTAIN ABOUT CURRENT DAY / DATE). PATIENT OBSERVED AMBULATING ON UNIT. NO ACUTE DISTRESS. 11/03/17 12:20 Vital Signs Temperature 97.2 F L 11/03/17 09:32 Pulse Rate 77 11/03/17 09:32 Respiratory Rate 16 11/03/17 09:32 Blood Pressure 112/77 11/03/17 09:32 O2 Sat by Pulse Oximetry (%) Laboratory Tests 10/31/17 11/01/17 11/01/17 22:00 07:16 07:16 WBC 7.0 RBC 4.93 Hgb 14.7 Hct 44.7 MCV 90.8 MCH 29.8 MCHC 32.8 RDW 13.7 Plt Count 178 MPV 9.6 Sodium 145 Potassium 4.2 Chloride 109 H Carbon Dioxide 27 Anion Gap 9 BUN 13 Creatinine 1.1 Creat Clearance w eGFR > 60 Random Glucose 65 L D Calcium 8.5 Total Bilirubin 0.2 AST 19 D ALT 24 D Alkaline Phosphatase 116 Total Protein 6.1 L Albumin 3.2 L Urine Color Ltyellow Urine Appearance Clear Urine pH 5.0 Ur Specific [place] 1.025 Urine Protein Negative Urine Glucose (UA) Negative Urine Ketones Negative Urine Blood Negative Urine Nitrite Negative Urine Bilirubin Negative Urine Urobilinogen 2.0 Ur Leukocyte Esterase Negative RPR Titer Hep C Ab Diagnostic Liver Fibrosis Interp HIV 1&2 Antibody Screen HIV P24 Antigen 11/01/17 11/01/17 07:16 07:16 WBC RBC Hgb Hct MCV MCH MCHC RDW Plt Count MPV Sodium Potassium Chloride Carbon Dioxide Anion Gap BUN Creatinine Creat Clearance w eGFR Random Glucose Calcium Total Bilirubin AST ALT Alkaline Phosphatase Total Protein Albumin Urine Color Urine Appearance Urine pH Ur Specific [place] Urine Protein Urine Glucose (UA) Urine Ketones Urine Blood Urine Nitrite Urine Bilirubin Urine Urobilinogen Ur Leukocyte Esterase RPR Titer Nonreactive Hep C Ab Diagnostic 0.1 Liver Fibrosis Interp HIV 1&2 Antibody Screen Negative HIV P24 Antigen Negative LABS NOTED. Assessment: 11/03/17 12:21 WITHDRAWAL SYMPTOMS. Plan: CONTINUE DETOX. INCREASE DAILY PO FLUID INTAKE. PATIENT SCHEDULED FOR D/C TOMORROW.
[2017-11-03] MEDS: THIAMINE HCL 100 MG TABLET (FP) PO SCH (22:21)
[2017-11-03] MEDS: ATORVASTATIN CA 80 MG TABLET (FP) PO SCH (22:21)
[2017-11-03] MEDS: chlordiazePOXIDE HCL 10 MG CAPSULE PO SCH (22:22)
[2017-11-04] MEDS: chlordiazePOXIDE HCL 10 MG CAPSULE PO SCH ×3 (05:04→17:40)
[2017-11-04] MEDS: NICOTINE 21 MG/24 HOURS TOPICAL PATCH TD SCH (09:08)
[2017-11-04] MEDS: ASPIRIN COATED 81 MG TABLET.EC PO SCH (10:26)
[2017-11-04] MEDS: PRASUGREL HCL 10 MG TAB PO SCH (10:27)
[2017-11-04] MEDS: PRENATAL VITAMINS W/ FOLIC ACID TABLET (FP) PO SCH (10:27)
[2017-11-04] MEDS: EZETIMIBE 10 MG TABLET (FP) PO SCH (10:27)
[2017-11-04] MEDS: LISINOPRIL 5 MG TABLET (FP) PO SCH (10:27)
--- NOTE | 2017-11-04 19:33 | PN ---
[facility] Progress Note (SOAP) Subjective: Sweating, Anxious. Objective: PATIENT A & O X 3, OBSERVED AMBULATING ON UNIT. NO ACUTE DISTRESS. 11/04/17 19:29 Vital Signs Temperature 97.4 F L 11/04/17 17:56 Pulse Rate 82 11/04/17 17:56 Respiratory Rate 18 11/04/17 17:56 Blood Pressure 113/76 11/04/17 17:56 O2 Sat by Pulse Oximetry (%) Laboratory Tests 10/31/17 11/01/17 11/01/17 22:00 07:16 07:16 WBC 7.0 RBC 4.93 Hgb 14.7 Hct 44.7 MCV 90.8 MCH 29.8 MCHC 32.8 RDW 13.7 Plt Count 178 MPV 9.6 Sodium 145 Potassium 4.2 Chloride 109 H Carbon Dioxide 27 Anion Gap 9 BUN 13 Creatinine 1.1 Creat Clearance w eGFR > 60 Random Glucose 65 L D Calcium 8.5 Total Bilirubin 0.2 AST 19 D ALT 24 D Alkaline Phosphatase 116 Total Protein 6.1 L Albumin 3.2 L Urine Color Ltyellow Urine Appearance Clear Urine pH 5.0 Ur Specific [place] 1.025 Urine Protein Negative Urine Glucose (UA) Negative Urine Ketones Negative Urine Blood Negative Urine Nitrite Negative Urine Bilirubin Negative Urine Urobilinogen 2.0 Ur Leukocyte Esterase Negative RPR Titer Hep C Ab Diagnostic Liver Fibrosis Interp HIV 1&2 Antibody Screen HIV P24 Antigen 11/01/17 11/01/17 07:16 07:16 WBC RBC Hgb Hct MCV MCH MCHC RDW Plt Count MPV Sodium Potassium Chloride Carbon Dioxide Anion Gap BUN Creatinine Creat Clearance w eGFR Random Glucose Calcium Total Bilirubin AST ALT Alkaline Phosphatase Total Protein Albumin Urine Color Urine Appearance Urine pH Ur Specific [place] Urine Protein Urine Glucose (UA) Urine Ketones Urine Blood Urine Nitrite Urine Bilirubin Urine Urobilinogen Ur Leukocyte Esterase RPR Titer Nonreactive Hep C Ab Diagnostic 0.1 Liver Fibrosis Interp HIV 1&2 Antibody Screen Negative HIV P24 Antigen Negative LABS NOTED. Assessment: 11/04/17 19:30 WITHDRAWAL SYMPTOMS. Plan: CONTINUE DETOX. PATIENT INTENT ON GOING ON TO REHAB FOR AFTERCARE. NO BEDS ARE CURRENTLY AVAILABLE AT [facility], PATIENT PERMITTED TO REMAIN ON DETOX UNIT FOR 1-2 MORE DAYS WHILE AWAITING REHAB BED AVAILABILITY.
[2017-11-04] MEDS: THIAMINE HCL 100 MG TABLET (FP) PO SCH (22:02)
[2017-11-04] MEDS: ATORVASTATIN CA 80 MG TABLET (FP) PO SCH (22:03)
[2017-11-05] MEDS: NICOTINE 21 MG/24 HOURS TOPICAL PATCH TD SCH (09:13)
[2017-11-05] MEDS: LISINOPRIL 5 MG TABLET (FP) PO SCH (09:14)
[2017-11-05] MEDS: PRENATAL VITAMINS W/ FOLIC ACID TABLET (FP) PO SCH (09:14)
[2017-11-05] MEDS: EZETIMIBE 10 MG TABLET (FP) PO SCH (09:14)
[2017-11-05] MEDS: PRASUGREL HCL 10 MG TAB PO SCH (09:14)
[2017-11-05] MEDS: ASPIRIN COATED 81 MG TABLET.EC PO SCH (09:14)
--- NOTE | 2017-11-05 14:58 | PN ---
[facility] Progress Note (SOAP) Subjective: Agitated, angry Objective: 11/05/17 14:56 Last Vital Signs Temp Pulse Resp BP Pulse Ox 97.4 F L 74 18 123/71 11/05/17 14:34 11/05/17 14:34 11/05/17 14:34 11/05/17 14:34 Laboratory Tests 10/31/17 11/01/17 11/01/17 22:00 07:16 07:16 WBC 7.0 RBC 4.93 Hgb 14.7 Hct 44.7 MCV 90.8 MCH 29.8 MCHC 32.8 RDW 13.7 Plt Count 178 MPV 9.6 Sodium 145 Potassium 4.2 Chloride 109 H Carbon Dioxide 27 Anion Gap 9 BUN 13 Creatinine 1.1 Creat Clearance w eGFR > 60 Random Glucose 65 L D Calcium 8.5 Total Bilirubin 0.2 AST 19 D ALT 24 D Alkaline Phosphatase 116 Total Protein 6.1 L Albumin 3.2 L Urine Color Ltyellow Urine Appearance Clear Urine pH 5.0 Ur Specific [place] 1.025 Urine Protein Negative Urine Glucose (UA) Negative Urine Ketones Negative Urine Blood Negative Urine Nitrite Negative Urine Bilirubin Negative Urine Urobilinogen 2.0 Ur Leukocyte Esterase Negative RPR Titer Hep C Ab Diagnostic Hepatitis C RNA HCV RNA PCR w/Genot Rflx Liver Fibrosis Interp HIV 1&2 Antibody Screen HIV P24 Antigen 11/01/17 11/01/17 07:16 07:16 WBC RBC Hgb Hct MCV MCH MCHC RDW Plt Count MPV Sodium Potassium Chloride Carbon Dioxide Anion Gap BUN Creatinine Creat Clearance w eGFR Random Glucose Calcium Total Bilirubin AST ALT Alkaline Phosphatase Total Protein Albumin Urine Color Urine Appearance Urine pH Ur Specific [place] Urine Protein Urine Glucose (UA) Urine Ketones Urine Blood Urine Nitrite Urine Bilirubin Urine Urobilinogen Ur Leukocyte Esterase RPR Titer Nonreactive Hep C Ab Diagnostic 0.1 Hepatitis C RNA No Result Required. HCV RNA PCR w/Genot Rflx No Result Required. Liver Fibrosis Interp HIV 1&2 Antibody Screen Negative HIV P24 Antigen Negative Labs reviewed Assessment: 11/05/17 14:58 Withdrawal symptoms Plan: Continue detox
[2017-11-05] MEDS: ATORVASTATIN CA 80 MG TABLET (FP) PO SCH (22:11)
[2017-11-05] MEDS: THIAMINE HCL 100 MG TABLET (FP) PO SCH (22:11)
[2017-11-06 09:05] VITALS: BP 113/78; PULSE 83; TEMP 98.3
[2017-11-06] MEDS: NICOTINE 21 MG/24 HOURS TOPICAL PATCH TD SCH (09:05)
--- NOTE | 2017-11-06 09:51 | PN ---
[facility] Progress Note (SOAP) Subjective: DETOX COMPLETED. ALERT O X 3. NAD. PT REPORTS HE HAS A PMD, DR JUNIOR CARBALLO AT [facility]. PT IS REFERRED TO REHAB TODAY WHERE BED IS AVAILABLE. Objective: 11/06/17 09:50 Vital Signs 11/06/17 11/06/17 11/06/17 03:30 06:07 09:02 Temperature 97 F L 98.3 F Pulse Rate 67 83 Respiratory 18 20 18 Rate Blood Pressure 106/70 113/78 Laboratory Tests 10/31/17 11/01/17 11/01/17 22:00 07:16 07:16 WBC 7.0 RBC 4.93 Hgb 14.7 Hct 44.7 MCV 90.8 MCH 29.8 MCHC 32.8 RDW 13.7 Plt Count 178 MPV 9.6 Sodium 145 Potassium 4.2 Chloride 109 H Carbon Dioxide 27 Anion Gap 9 BUN 13 Creatinine 1.1 Creat Clearance w eGFR > 60 Random Glucose 65 L D Calcium 8.5 Total Bilirubin 0.2 AST 19 D ALT 24 D Alkaline Phosphatase 116 Total Protein 6.1 L Albumin 3.2 L Urine Color Ltyellow Urine Appearance Clear Urine pH 5.0 Ur Specific [place] 1.025 Urine Protein Negative Urine Glucose (UA) Negative Urine Ketones Negative Urine Blood Negative Urine Nitrite Negative Urine Bilirubin Negative Urine Urobilinogen 2.0 Ur Leukocyte Esterase Negative RPR Titer Hep C Ab Diagnostic Hepatitis C RNA HCV RNA PCR w/Genot Rflx Liver Fibrosis Interp HIV 1&2 Antibody Screen HIV P24 Antigen 11/01/17 11/01/17 07:16 07:16 WBC RBC Hgb Hct MCV MCH MCHC RDW Plt Count MPV Sodium Potassium Chloride Carbon Dioxide Anion Gap BUN Creatinine Creat Clearance w eGFR Random Glucose Calcium Total Bilirubin AST ALT Alkaline Phosphatase Total Protein Albumin Urine Color Urine Appearance Urine pH Ur Specific [place] Urine Protein Urine Glucose (UA) Urine Ketones Urine Blood Urine Nitrite Urine Bilirubin Urine Urobilinogen Ur Leukocyte Esterase RPR Titer Nonreactive Hep C Ab Diagnostic 0.1 Hepatitis C RNA No Result Required. HCV RNA PCR w/Genot Rflx No Result Required. Liver Fibrosis Interp HIV 1&2 Antibody Screen Negative HIV P24 Antigen Negative Assessment: 11/06/17 09:50 MEDICALLY STABLE Plan: D/C PT TODAY. FOLLOW UP WITH REHAB TODAY IF BED AVAILABLE.
--- NOTE | 2017-11-06 09:54 | DS ---
[facility] Detox Discharge Summary Admission Date: 10/31/17 Discharge Date: 11/06/17 - History Present History: Alcohol Dependence Additional Comments: DETOX COMPLETED. ALERT O X 3. FOLLOW UP WITH PMD, DR JUNIOR CARBALLO AT [address] [place] [address]/[facility] NEEDED. Pertinent Past History: PLEASE SEE DX BELOW - Physical Exam Results Vital Signs: Vital Signs Temperature 98.3 F 11/06/17 09:02 Pulse Rate 83 11/06/17 09:02 Respiratory Rate 18 11/06/17 09:02 Blood Pressure 113/78 11/06/17 09:02 O2 Sat by Pulse Oximetry (%) Pertinent Admission Physical Exam Findings: WITHDRAWAL SX Laboratory Tests 10/31/17 11/01/17 11/01/17 22:00 07:16 07:16 WBC 7.0 RBC 4.93 Hgb 14.7 Hct 44.7 MCV 90.8 MCH 29.8 MCHC 32.8 RDW 13.7 Plt Count 178 MPV 9.6 Sodium 145 Potassium 4.2 Chloride 109 H Carbon Dioxide 27 Anion Gap 9 BUN 13 Creatinine 1.1 Creat Clearance w eGFR > 60 Random Glucose 65 L D Calcium 8.5 Total Bilirubin 0.2 AST 19 D ALT 24 D Alkaline Phosphatase 116 Total Protein 6.1 L Albumin 3.2 L Urine Color Ltyellow Urine Appearance Clear Urine pH 5.0 Ur Specific [place] 1.025 Urine Protein Negative Urine Glucose (UA) Negative Urine Ketones Negative Urine Blood Negative Urine Nitrite Negative Urine Bilirubin Negative Urine Urobilinogen 2.0 Ur Leukocyte Esterase Negative RPR Titer Hep C Ab Diagnostic Hepatitis C RNA HCV RNA PCR w/Genot Rflx Liver Fibrosis Interp HIV 1&2 Antibody Screen HIV P24 Antigen 11/01/17 11/01/17 07:16 07:16 WBC RBC Hgb Hct MCV MCH MCHC RDW Plt Count MPV Sodium Potassium Chloride Carbon Dioxide Anion Gap BUN Creatinine Creat Clearance w eGFR Random Glucose Calcium Total Bilirubin AST ALT Alkaline Phosphatase Total Protein Albumin Urine Color Urine Appearance Urine pH Ur Specific [place] Urine Protein Urine Glucose (UA) Urine Ketones Urine Blood Urine Nitrite Urine Bilirubin Urine Urobilinogen Ur Leukocyte Esterase RPR Titer Nonreactive Hep C Ab Diagnostic 0.1 Hepatitis C RNA No Result Required. HCV RNA PCR w/Genot Rflx No Result Required. Liver Fibrosis Interp HIV 1&2 Antibody Screen Negative HIV P24 Antigen Negative - Treatment Hospital Course: Detox Protocol Followed, Detoxed Safely, Responded well, Discharged Condition Good, Rehab Referral Accepted Patient has Accepted a Rehab Referral to: [facility] - Medication Discharge Medications: Ambulatory Orders Aspirin [Aspirin EC] 81 mg PO DAILY 03/30/16 Atorvastatin Ca [Lipitor] 80 mg PO HS 03/30/16 Ezetimibe [Zetia] 10 mg PO DAILY 03/30/16 Lisinopril 5 mg PO DAILY 03/30/16 Metoprolol Succinate [Toprol Xl] 50 mg PO DAILY 03/30/16 Prasugrel HCl [Effient] 5 mg PO BID 03/30/16 - Diagnosis (1) Alcohol dependence with uncomplicated withdrawal Current Visit: Yes Status: Acute (2) Cocaine dependence Current Visit: Yes Status: Acute Qualifiers: Substance use status: uncomplicated Qualified Code(s): F14.20 - Cocaine dependence, uncomplicated (3) Eczema Current Visit: Yes Status: Chronic Qualifiers: Eczema type: unspecified Qualified Code(s): L30.9 - Dermatitis, unspecified (4) Hyperlipidemia Current Visit: Yes Status: Chronic Qualifiers: Hyperlipidemia type: unspecified Qualified Code(s): E78.5 - Hyperlipidemia , unspecified (5) Hypertension Current Visit: Yes Status: Chronic Qualifiers: Hypertension type: unspecified Qualified Code(s): I10 - Essential (primary ) hypertension (6) Nicotine dependence Current Visit: Yes Status: Acute Qualifiers: Nicotine product type: cigarettes Substance use status: in withdrawal Qualified Code(s): F17.213 - Nicotine dependence, cigarettes, with withdrawal (7) Stented coronary artery Current Visit: Yes Status: Chronic (8) History of syphilis Current Visit: Yes Status: Resolved - AMA Did Patient Leave Against Medical Advice: No
== END 2017-11-06 11:06 | disposition other institution (70) | DRG 774 ==
LOC: YASAS 14:48 → Y3N 19:42
PROVIDERS: ADMIT Surgery; ATTEND Surgery
PROC: HZ2ZZZZ Detoxification Services for Substance Abuse Treatment (ICD-10-PCS; principal; 2017-10-31)
DX: F10.230 Alcohol dependence with withdrawal, uncomplicated (principal); F14.20 Cocaine dependence, uncomplicated; F17.213 Nicotine dependence, cigarettes, with withdrawal; I25.10 Atherosclerotic heart disease of native coronary artery without angina pectoris; Z95.5 Presence of coronary angioplasty implant and graft; I10 Essential (primary) hypertension; E78.5 Hyperlipidemia, unspecified; Z86.19 Personal history of other infectious and parasitic diseases
CPT/HCPCS: 36415; 80053; 81003; 85027; 86593; 86803; 87389; 93005; 93010

== ENCOUNTER 2017-11-06 11:09 | Inpatient (IN) | payer OTHER ==
[2017-11-06 12:36] VITALS: BMI 35.2
[2017-11-06] MEDS ORDERED: MENTHOL/PHENOL 1 EACH UD MM PRN (13:27)
[2017-11-06] MEDS ORDERED: ACETAMINOPHEN 325 MG TABLET (FP) PO PRN (13:27)
[2017-11-06] MEDS ORDERED: P-EPHED 60MG/TRIPROLIDI 2.5MG TABLET PO PRN (13:27)
[2017-11-06] MEDS ORDERED: MAGNESIUM HYDROX 2400MG/30ML ORAL SUSPENSION 30 ML CUP PO PRN (13:27)
[2017-11-06] MEDS ORDERED: NICOTINE POLACRILEX 4 MG GUM BUC PRN (13:27)
[2017-11-06] MEDS ORDERED: MAGNESIUM CITRATE 300 ML BOTTLE PO PRN (13:27)
[2017-11-06] MEDS ORDERED: IBUPROFEN 400 MG TABLET (FP) PO PRN (13:27)
[2017-11-06] MEDS ORDERED: guaiFENesin/D-METHORPHAN HB 10 ML UNIT-DOSE CUPS PO PRN (13:27)
[2017-11-06] MEDS ORDERED: MAG HYDROX/AL HYDROX/SIMETH 30 ML UNIT-DOSE CUP PO PRN (13:27)
[2017-11-06] MEDS ORDERED: hydrOXYzine PAMOATE 50 MG CAPSULE (FP) PO PRN (13:27)
[2017-11-06] MEDS ORDERED: LOPERAMIDE HCL 2 MG CAPSULE PO PRN (13:27)
--- NOTE | 2017-11-06 13:27 | HP ---
[facility] Rehab Assess/Revision - Admission History Admitted to Rehab from: [facility] Date of Admission to Rehab: 11/06/17 - Vital signs Vital Signs: Vital Signs Period Temp Pulse Resp BP Sys/Karimi Pulse Ox Last 24 Hr 97.4 F 72 19 117/76 - Findings Detox History & Physical reviewed: Yes Concur with findings: Yes Comments/Additional Findings: DETOX COMPLETED TODAY ON . Inpatient Rehab Admission - Initial Determination Are CD services needed?: Yes Free of communicable disease: Yes Not in need of hospitalization: Yes - Rehab Admission Criteria Patient is meeting Inpatient Rehab admission criteria:: Yes
[2017-11-06] MEDS: NICOTINE 21 MG/24 HOURS TOPICAL PATCH TD SCH (15:07)
--- NOTE | 2017-11-06 16:03 | HP ---
Psychiatrist Admission - Data Date of interview: 11/06/17 Admission source: Transfer from [address] [place] [address]. Identifying data: First admission to [address] for this 51 y/o AA male seeking rehabilitation treatment addressing alcohol and cocaine (crack) dependence.Patient is single,a father of one,homeless (resides at [facility]),unemployed and supported on SSI benefits. Medical History: History of myocardial infarction,coronary artery disease ( cardiac stents in 2010),dyslipidemia,eczema and past treatment for syphilis. Psychiatric History: Patient denies. Physical/Sexual Abuse/Trauma History: Patient denies. Additional Comment: Smoking history: Current every day smoker. Have you smoked in the past 12 months: Yes. Aproximately how many cigarettes per day: 40. Hx Chewing Tobacco Use: No. Initiated information on smoking cessation: Yes. ' Breaking Loose' booklet given: 10/31/17. - Substance & Tx. History. Hx Alcohol Use: Yes. Hx Substance Use: Yes. Substance Use Type: Alcohol, Cocaine. Hx Substance Use Treatment: Yes (DETOX/REHAB: 6 MONTHS AGO ). - Substances Abused. Alcohol. Route: Oral. Frequency: Daily. Amount used: OZ BEER. Age of first use: 8. Date of Last Use: 10/31/17. Crack. Route : Smoking. Frequency: Daily. Substance abuse history if discussed with the patient.Mr Donovan admits to continouous use of alcohol and crack on a daily basis.Details in this segment of [facility] report as follows : Amount used: $40. Age of first use: 18. Date of Last Use: 10/31/17. Urine Drug Screen Results: [place]- Cocaine.Noted on admission to [address] [place] [address]. Vital Signs: Vital Signs - 24 hr 11/06/17 12:27 Temperature 97.4 F L Pulse Rate 72 Respiratory 19 Rate Blood Pressure 117/76 Allergies/Adverse Reactions: Allergies Allergy/AdvReac Type Severity Reaction Status Date / Time Fish Containing Products Allergy Verified 10/31/17 18:19 Penicillins AdvReac Verified 10/31/17 18:19 - Substance Abuse/Tx History Hx Alcohol Use: Yes Hx Substance Use: Yes (alcohol,nicotine and crack) Substance Use Type: Alcohol, Cocaine Hx Substance Use Treatment: Yes Mental Status Exam - Mental Status Exam Alert and Oriented to: Time, Place, Person Cognitive Function: Good Patient Appearance: Well Groomed Mood: Hopeful, Euthymic Affect: Appropriate, Normal Range Patient Behavior: Appropriate, Cooperative Speech Pattern: Clear, Appropriate Voice Loudness: Normal Thought Process: Intact, Goal Oriented Thought Disorder: Not Present Hallucinations: Denies Suicidal Ideation: Denies Homicidal Ideation: Denies Insight/Judgement: Fair Sleep: Poorly, Difficulty falling asleep (patient requests benadryl) Muscle strength/Tone: Normal Gait/Station: Normal Psychiatric Findings - Problem List ([place] 1, 2,3) (1) Alcohol dependence Current Visit: Yes Status: Chronic (2) Cocaine dependence Current Visit: Yes Status: Chronic Qualifiers: Substance use status: uncomplicated Qualified Code(s): F14.20 - Cocaine dependence, uncomplicated (3) Nicotine dependence Current Visit: Yes Status: Chronic Qualifiers: Nicotine product type: cigarettes Substance use status: in withdrawal Qualified Code(s): F17.213 - Nicotine dependence, cigarettes, with withdrawal (4) Insomnia Current Visit: Yes Status: Chronic - Initial Treatment Plan Initial Treatment Plan: Psychoeducation.Sleep hygiene discussed with the patient.Groups + activity therapy.Insomnia is addressed with benadryl 50 mg po hs prn (patient's request).Side effects/benefits discussed.Observation.
--- NOTE | 2017-11-06 16:18 | PN ---
S Progress Note Note: Vital Signs Temperature 97.4 F L 11/06/17 12:27 Pulse Rate 72 11/06/17 12:27 Respiratory Rate 19 11/06/17 12:27 Blood Pressure 117/76 11/06/17 12:27 O2 Sat by Pulse Oximetry (%) Reports hx of eczema hydrocortisone top ont BID keep skin moisturize increase fluids continue to monitor
[2017-11-06] MEDS: ATORVASTATIN CA 80 MG TABLET (FP) PO SCH (21:17)
[2017-11-06] MEDS: THIAMINE HCL 100 MG TABLET (FP) PO SCH (21:17)
[2017-11-06] MEDS: diphenhydrAMINE HCL 50 MG CAPSULE PO PRN (21:18)
[2017-11-06] MEDS: HYDROCORTISONE 1% TOPICAL OINT 30 GM TUBE TP PRN (21:19)
[2017-11-06] MEDS ORDERED: MELATONIN 5 MG TABLETS PO PRN (22:00)
[2017-11-06] MEDS ORDERED: PRASUGREL HCL 5 MG TAB PO SCH (22:00)
[2017-11-07] MEDS: LISINOPRIL 5 MG TABLET (FP) PO SCH (10:39)
[2017-11-07] MEDS: NICOTINE 21 MG/24 HOURS TOPICAL PATCH TD SCH (10:39)
[2017-11-07] MEDS: HYDROCORTISONE 1% TOPICAL OINT 30 GM TUBE TP PRN (10:39)
[2017-11-07] MEDS: PRENATAL VITAMINS W/ FOLIC ACID TABLET (FP) PO SCH (10:39)
[2017-11-07] MEDS: EZETIMIBE 10 MG TABLET (FP) PO SCH (10:39)
[2017-11-07] MEDS: PRASUGREL HCL 10 MG TAB PO SCH (10:39)
[2017-11-07] MEDS: ASPIRIN COATED 81 MG TABLET.EC PO SCH (10:40)
[2017-11-07] MEDS: THIAMINE HCL 100 MG TABLET (FP) PO SCH (21:16)
[2017-11-07] MEDS: diphenhydrAMINE HCL 50 MG CAPSULE PO PRN (21:16)
[2017-11-07] MEDS: ATORVASTATIN CA 80 MG TABLET (FP) PO SCH (21:17)
[2017-11-08] MEDS ORDERED: PT OWN MED DRAWER 7, Y5N ONE (08:51)
[2017-11-08] MEDS: PRENATAL VITAMINS W/ FOLIC ACID TABLET (FP) PO SCH (10:11)
[2017-11-08] MEDS: NICOTINE 21 MG/24 HOURS TOPICAL PATCH TD SCH (10:11)
[2017-11-08] MEDS: EZETIMIBE 10 MG TABLET (FP) PO SCH (10:12)
[2017-11-08] MEDS: PRASUGREL HCL 10 MG TAB PO SCH (10:12)
[2017-11-08] MEDS: LISINOPRIL 5 MG TABLET (FP) PO SCH (10:12)
[2017-11-08] MEDS: ASPIRIN COATED 81 MG TABLET.EC PO SCH (10:12)
[2017-11-08] MEDS: THIAMINE HCL 100 MG TABLET (FP) PO SCH (21:07)
[2017-11-08] MEDS: ATORVASTATIN CA 80 MG TABLET (FP) PO SCH (21:07)
[2017-11-08] MEDS: diphenhydrAMINE HCL 50 MG CAPSULE PO PRN (21:08)
[2017-11-09] MEDS: PRENATAL VITAMINS W/ FOLIC ACID TABLET (FP) PO SCH (09:42)
[2017-11-09] MEDS: LISINOPRIL 5 MG TABLET (FP) PO SCH (09:42)
[2017-11-09] MEDS: ASPIRIN COATED 81 MG TABLET.EC PO SCH (09:42)
[2017-11-09] MEDS: PRASUGREL HCL 10 MG TAB PO SCH (09:42)
[2017-11-09] MEDS: EZETIMIBE 10 MG TABLET (FP) PO SCH (09:42)
[2017-11-09] MEDS: NICOTINE 21 MG/24 HOURS TOPICAL PATCH TD SCH (09:42)
--- NOTE | 2017-11-09 15:32 | PN ---
S Progress Note Note: Vital Signs Temperature 97.5 F L 11/09/17 07:09 Pulse Rate 82 11/09/17 10:00 Respiratory Rate 18 11/09/17 10:00 Blood Pressure 106/62 11/09/17 10:00 O2 Sat by Pulse Oximetry (%) c/o constipation colace qhs increase fluids continue to monitor
[2017-11-09] MEDS: ATORVASTATIN CA 80 MG TABLET (FP) PO SCH (21:20)
[2017-11-09] MEDS: DOCUSATE SODIUM 100 MG CAPSULE (FP) PO SCH (21:20)
[2017-11-09] MEDS: THIAMINE HCL 100 MG TABLET (FP) PO SCH (21:20)
[2017-11-09] MEDS: diphenhydrAMINE HCL 50 MG CAPSULE PO PRN (21:20)
[2017-11-10] MEDS ORDERED: PT OWN MED DRAWER 7, Y5N ONE (09:02)
[2017-11-10] MEDS: NICOTINE 21 MG/24 HOURS TOPICAL PATCH TD SCH (09:26)
[2017-11-10] MEDS: LISINOPRIL 5 MG TABLET (FP) PO SCH (09:26)
[2017-11-10] MEDS: PRENATAL VITAMINS W/ FOLIC ACID TABLET (FP) PO SCH (09:26)
[2017-11-10] MEDS: PRASUGREL HCL 10 MG TAB PO SCH (09:27)
[2017-11-10] MEDS: ASPIRIN COATED 81 MG TABLET.EC PO SCH (09:27)
[2017-11-10] MEDS: EZETIMIBE 10 MG TABLET (FP) PO SCH (09:27)
[2017-11-10] MEDS: THIAMINE HCL 100 MG TABLET (FP) PO SCH (21:40)
[2017-11-10] MEDS: diphenhydrAMINE HCL 50 MG CAPSULE PO PRN (21:40)
[2017-11-10] MEDS: DOCUSATE SODIUM 100 MG CAPSULE (FP) PO SCH (21:41)
[2017-11-10] MEDS: ATORVASTATIN CA 80 MG TABLET (FP) PO SCH (21:41)
[2017-11-11] MEDS: ASPIRIN COATED 81 MG TABLET.EC PO SCH (09:41)
[2017-11-11] MEDS: LISINOPRIL 5 MG TABLET (FP) PO SCH (09:41)
[2017-11-11] MEDS: NICOTINE 21 MG/24 HOURS TOPICAL PATCH TD SCH (09:41)
[2017-11-11] MEDS: PRENATAL VITAMINS W/ FOLIC ACID TABLET (FP) PO SCH (09:42)
[2017-11-11] MEDS: PRASUGREL HCL 10 MG TAB PO SCH (09:42)
[2017-11-11] MEDS: EZETIMIBE 10 MG TABLET (FP) PO SCH (10:59)
[2017-11-11] MEDS: ATORVASTATIN CA 80 MG TABLET (FP) PO SCH (21:55)
[2017-11-11] MEDS: THIAMINE HCL 100 MG TABLET (FP) PO SCH (21:55)
[2017-11-11] MEDS: DOCUSATE SODIUM 100 MG CAPSULE (FP) PO SCH (21:55)
[2017-11-12] MEDS ORDERED: PT OWN MED DRAWER 7, Y5N ONE (08:59)
[2017-11-12] MEDS: NICOTINE 21 MG/24 HOURS TOPICAL PATCH TD SCH (09:56)
[2017-11-12] MEDS: ASPIRIN COATED 81 MG TABLET.EC PO SCH (09:56)
[2017-11-12] MEDS: LISINOPRIL 5 MG TABLET (FP) PO SCH (09:56)
[2017-11-12] MEDS: PRENATAL VITAMINS W/ FOLIC ACID TABLET (FP) PO SCH (09:56)
[2017-11-12] MEDS: EZETIMIBE 10 MG TABLET (FP) PO SCH (09:57)
[2017-11-12] MEDS: PRASUGREL HCL 10 MG TAB PO SCH (09:58)
[2017-11-12] MEDS: ATORVASTATIN CA 80 MG TABLET (FP) PO SCH (21:32)
[2017-11-12] MEDS: DOCUSATE SODIUM 100 MG CAPSULE (FP) PO SCH (21:32)
[2017-11-12] MEDS: THIAMINE HCL 100 MG TABLET (FP) PO SCH (21:32)
[2017-11-12] MEDS: diphenhydrAMINE HCL 50 MG CAPSULE PO PRN (21:33)
[2017-11-13] MEDS: PRENATAL VITAMINS W/ FOLIC ACID TABLET (FP) PO SCH (09:58)
[2017-11-13] MEDS: EZETIMIBE 10 MG TABLET (FP) PO SCH (09:58)
[2017-11-13] MEDS: ASPIRIN COATED 81 MG TABLET.EC PO SCH (09:58)
[2017-11-13] MEDS: NICOTINE 21 MG/24 HOURS TOPICAL PATCH TD SCH (09:58)
[2017-11-13] MEDS: LISINOPRIL 5 MG TABLET (FP) PO SCH (09:58)
[2017-11-13] MEDS: PRASUGREL HCL 10 MG TAB PO SCH (09:59)
[2017-11-13] MEDS: ATORVASTATIN CA 80 MG TABLET (FP) PO SCH (21:51)
[2017-11-13] MEDS: THIAMINE HCL 100 MG TABLET (FP) PO SCH (21:51)
[2017-11-13] MEDS: DOCUSATE SODIUM 100 MG CAPSULE (FP) PO SCH (21:52)
[2017-11-14] MEDS ORDERED: PT OWN MED DRAWER 7, Y5N ONE (09:04)
[2017-11-14] MEDS: EZETIMIBE 10 MG TABLET (FP) PO SCH (10:02)
[2017-11-14] MEDS: NICOTINE 21 MG/24 HOURS TOPICAL PATCH TD SCH (10:02)
[2017-11-14] MEDS: PRASUGREL HCL 10 MG TAB PO SCH (10:02)
[2017-11-14] MEDS: PRENATAL VITAMINS W/ FOLIC ACID TABLET (FP) PO SCH (10:02)
[2017-11-14] MEDS: LISINOPRIL 5 MG TABLET (FP) PO SCH (10:02)
[2017-11-14] MEDS: ASPIRIN COATED 81 MG TABLET.EC PO SCH (10:02)
[2017-11-14] MEDS: DOCUSATE SODIUM 100 MG CAPSULE (FP) PO SCH (21:30)
[2017-11-14] MEDS: ATORVASTATIN CA 80 MG TABLET (FP) PO SCH (21:30)
[2017-11-14] MEDS: diphenhydrAMINE HCL 50 MG CAPSULE PO PRN (21:30)
[2017-11-14] MEDS: THIAMINE HCL 100 MG TABLET (FP) PO SCH (21:30)
[2017-11-15] MEDS: NICOTINE 21 MG/24 HOURS TOPICAL PATCH TD SCH (10:09)
[2017-11-15] MEDS: EZETIMIBE 10 MG TABLET (FP) PO SCH (10:09)
[2017-11-15] MEDS: PRENATAL VITAMINS W/ FOLIC ACID TABLET (FP) PO SCH (10:09)
[2017-11-15] MEDS: ASPIRIN COATED 81 MG TABLET.EC PO SCH (10:09)
[2017-11-15] MEDS: LISINOPRIL 5 MG TABLET (FP) PO SCH (10:09)
[2017-11-15] MEDS: PRASUGREL HCL 10 MG TAB PO SCH (10:10)
[2017-11-15] MEDS: ATORVASTATIN CA 80 MG TABLET (FP) PO SCH (22:04)
[2017-11-15] MEDS: DOCUSATE SODIUM 100 MG CAPSULE (FP) PO SCH (22:04)
[2017-11-15] MEDS: diphenhydrAMINE HCL 50 MG CAPSULE PO PRN (22:05)
[2017-11-15] MEDS: THIAMINE HCL 100 MG TABLET (FP) PO SCH (22:06)
[2017-11-16 07:13] VITALS: TEMP 97.9
[2017-11-16] MEDS: NICOTINE 21 MG/24 HOURS TOPICAL PATCH TD SCH (09:59)
[2017-11-16] MEDS: LISINOPRIL 5 MG TABLET (FP) PO SCH (10:00)
[2017-11-16] MEDS: PRENATAL VITAMINS W/ FOLIC ACID TABLET (FP) PO SCH (10:00)
[2017-11-16] MEDS: ASPIRIN COATED 81 MG TABLET.EC PO SCH (10:00)
[2017-11-16] MEDS: EZETIMIBE 10 MG TABLET (FP) PO SCH (10:00)
[2017-11-16] MEDS: PRASUGREL HCL 10 MG TAB PO SCH (10:00)
[2017-11-16 10:26] VITALS: BP 108/71; PULSE 72
[2017-11-16] MEDS: THIAMINE HCL 100 MG TABLET (FP) PO SCH (21:38)
[2017-11-16] MEDS: DOCUSATE SODIUM 100 MG CAPSULE (FP) PO SCH (21:38)
[2017-11-16] MEDS: ATORVASTATIN CA 80 MG TABLET (FP) PO SCH (21:39)
[2017-11-16] MEDS: diphenhydrAMINE HCL 50 MG CAPSULE PO PRN (21:39)
--- NOTE | 2017-11-17 09:36 | PN ---
[facility] Progress Note Note: Psychiatric nurse practitioner note: Call received by RN at 0700 stating that patient left AMA at 01:00am. Pt. encouraged to stay until the morning but refused. Pt. signed out AMA.
== END 2017-11-17 01:00 | disposition left against medical advice (07) | DRG 770 ==
LOC: YASAS 11:09 → Y3W 11:10 → Y3E 11-07 10:52 → Y3W 11-07 10:54
PROVIDERS: ADMIT Psychiatry & Neurology Psychiatry; ATTEND Psychiatry & Neurology Psychiatry
PROC: HZ42ZZZ Group Counseling for Substance Abuse Treatment, Cognitive-Behavioral (ICD-10-PCS; principal; 2017-11-06)
DX: F10.20 Alcohol dependence, uncomplicated (principal); F14.20 Cocaine dependence, uncomplicated; F17.213 Nicotine dependence, cigarettes, with withdrawal; G47.00 Insomnia, unspecified; I25.10 Atherosclerotic heart disease of native coronary artery without angina pectoris; Z95.5 Presence of coronary angioplasty implant and graft; I10 Essential (primary) hypertension; I25.2 Old myocardial infarction; E78.5 Hyperlipidemia, unspecified; L30.9 Dermatitis, unspecified; Z79.82 Long term (current) use of aspirin; Z88.0 Allergy status to penicillin; Z91.013 Allergy to seafood